=== PATIENT | female | born 2000 | race Caucasian/White ===

== ENCOUNTER 2018-07-02 18:01 | Emergency (ER) | payer BC ==
[~2018-07-02] VITALS: Ht 157.5 cm; Wt 70.3 kg
[2018-07-02 18:25] VITALS: BP 120/64
[2018-07-02] MEDS ORDERED: BLISOVI 24 FE1 EACH PO (18:31)
[2018-07-02] MEDS ORDERED: OCEAN104 ML NASAL (18:32)
== END 2018-07-02 18:41 | disposition home or self-care (01) ==
LOC: ER 18:01
DX: J34.89 Other specified disorders of nose and nasal sinuses (principal)